=== PATIENT | female | born 1970 | race Caucasian/White ===

== ENCOUNTER 2016-11-12 15:15 | Emergency (ER) | payer OTHER ==
[~2016-11-12] VITALS: Ht 152.4 cm; Wt 72.2 kg
[~2016-11-12 15:15] MED LIST: ALBU1AER INH; HYDR-3533 PO; IRON18TA2 PO; MECL-62 PO; METH750T2 PO; OMEP20TA39 PO
[2016-11-12 15:18] VITALS: BP 139/85; PULSE 95; RESP 16; TEMP 99; O2SAT 98
[2016-11-12] MEDS ORDERED: ALBUAER3 INH (15:45)
[2016-11-12] MEDS ORDERED: SPIRCAP INH (15:49)
[2016-11-12] MEDS ORDERED: OMEP20TA PO (15:49)
[2016-11-12] MEDS ORDERED: METOCLOPRAMIDE HCL 10 MG/2 ML VIAL IV PUSH ONE (16:15)
[2016-11-12] MEDS ORDERED: MORPHINE SULFATE 4 MG/ML INJ IV PUSH ONE (16:15)
[2016-11-12] MEDS ORDERED: SODIUM CHLORIDE 0.9% FLUSH 10 ML FLUSH IV FLUSH PRN (16:15)
--- NOTE | 2016-11-12 16:15 | PD ---
HPI Chief Complaint: Dizziness Time Seen by Provider: 15:54 Travel History International Travel<30 days: No Contact w/Intl Traveler<30days: No Traveled to known affect area: No History of Present Illness HPI 46-year-old female with history of hydrocephalus as a child with VETERINARIAN EPIDEMIOLOGIST shunt that was revised 14 years ago here at [facility], here for evaluation of headache, dizziness, and right shoulder pain. The patient states that for the last several months she feels a tugging sensation in her right shoulder when she moves her neck around and believes it is from her VETERINARIAN EPIDEMIOLOGIST shunt being pulled. She reports that she fell 3 days ago and sustained minor head injury, no LOC. She feels as though there is a brick sitting on the top of her head, and is also complaining of dizziness with movements. Patient also reports having tingling sensation in all 4 for extremities. She denies fevers or chills. No visual disturbance. PFSH Past Medical History Cancer: Yes (brain) COPD: Yes Diminished Hearing: Yes (PT READS LIPS) GERD: Yes Neurologic: Yes (HYDROCEPHALUS AND VERTIGO) Immunizations Current: Yes Influenza Vaccination: No ?: Not Menopausal: Yes : 2 Para: 2 Tubal Ligation: Yes Past Surgical History Section: Yes Neurologic Surgery: Yes (SHUNT R/T HYDROCEPHALUS, BRAIN TUMOR) Tonsillectomy: Yes Social History Alcohol Use: Yes (RARE) Tobacco Use: No (1-2 CIGS PER DAY) Substance Use: No Allergies-Medications (Allergen,Severity, Reaction): Coded Allergies: Penicillin (Verified Allergy, Severe, GI UPSET, 11/12/16) Tramadol (Verified Allergy, Intermediate, Dizziness, 11/12/16) Aspirin (Verified Adverse Reaction, Severe, GI UPSET, 11/12/16) Reported Meds & Prescriptions Reported Meds & Active Scripts Active Tramadol (Tramadol HCl) 50 Mg Tab 50 Mg PO Q6H PRN Reported Spiriva Handihaler (Tiotropium Inh) 18 Mcg Cap 18 Mcg INH DAILY 1 capsule = 18 mcg Omeprazole 20 Mg Tab 20 Mg PO DAILY Proair Hfa 8.5 GM Inh (Albuterol Sulfate) 90 Mcg/Act Aer 1 Puff INH Q4H PRN 108 mcg/actuation Review of Systems Except as stated in HPI: all other systems reviewed are Neg Physical Exam Narrative GENERAL: Well-developed, well-nourished, comfortable, no acute distress. SKIN: Focused skin assessment warm/dry. HEAD: Atraumatic. Normocephalic. Right VETERINARIAN EPIDEMIOLOGIST shunt port is firm when palpated. EYES: Pupils equal and round. No scleral icterus. No injection or drainage. ENT: Mucous membranes pink and moist. NECK: Trachea midline. No JVD. No nuchal rigidity. CARDIOVASCULAR: Regular rate and rhythm. No murmur appreciated. RESPIRATORY: No accessory muscle use. Clear to auscultation. Breath sounds equal bilaterally. GASTROINTESTINAL: Abdomen soft, non-tender, nondistended. MUSCULOSKELETAL: No obvious deformities. No clubbing. No cyanosis. No edema. NEUROLOGICAL: Awake and alert. No obvious cranial nerve deficits. Motor grossly within normal limits. Normal speech. No focal deficits. PSYCHIATRIC: Appropriate mood and affect; insight and judgment normal. Data Data Last Documented VS Vital Signs Date Time Temp Pulse Resp B/P Pulse Ox O2 Delivery O2 Flow Rate FiO2 11/12/16 18:19 75 16 133/80 98 Room Air 11/12/16 15:18 99.0 Orders Complete Blood Count With Diff (11/12/16 16:03) Comprehensive Metabolic Panel (11/12/16 16:03) Prothrombin Time / Inr (Pt) (11/12/16 16:03) Act Partial Throm Time (Ptt) (11/12/16 16:03) Iv Access Insert/Monitor (11/12/16 16:03) Ecg Monitoring (11/12/16 16:03) Oximetry (11/12/16 16:03) Sodium Chloride 0.9% Flush (Ns Flush) (11/12/16 16:15) Electrocardiogram (11/12/16 16:03) Ct Brain W/O Iv Contrast(Rout) (11/12/16 ) Shunt Series (11/12/16 ) Beta Hcg (Quant/Titer) (11/12/16 16:03) Morphine Inj (Morphine Inj) (11/12/16 16:15) Metoclopramide Inj (Reglan Inj) (11/12/16 16:15) Shoulder, Complete (>2vws) (11/12/16 ) Sling Cradle Arm (11/12/16 ) Labs Laboratory Tests Test 11/12/16 16:55 White Blood Count 8.9 TH/MM3 Red Blood Count 4.59 MIL/MM3 Hemoglobin 13.9 GM/DL Hematocrit 40.5 % Mean Corpuscular Volume 88.2 FL Mean Corpuscular Hemoglobin 30.3 PG Mean Corpuscular Hemoglobin 34.3 % Concent Red Cell Distribution Width 12.4 % Platelet Count 220 TH/MM3 Mean Platelet Volume 7.7 FL Neutrophils (%) (Auto) 61.1 % Lymphocytes (%) (Auto) 26.6 % Monocytes (%) (Auto) 6.5 % Eosinophils (%) (Auto) 3.8 % Basophils (%) (Auto) 2.0 % Neutrophils # (Auto) 5.4 TH/MM3 Lymphocytes # (Auto) 2.4 TH/MM3 Monocytes # (Auto) 0.6 TH/MM3 Eosinophils # (Auto) 0.3 TH/MM3 Basophils # (Auto) 0.2 TH/MM3 CBC Comment DIFF FINAL Differential Comment Prothrombin Time 10.6 SEC Prothromb Time International 1.0 RATIO Ratio Activated Partial 26.1 SEC Thromboplast Time Sodium Level 139 MEQ/L Potassium Level 4.7 MEQ/L Chloride Level 103 MEQ/L Carbon Dioxide Level 28.2 MEQ/L Anion Gap 8 MEQ/L Blood Urea Nitrogen 17 MG/DL Creatinine 0.67 MG/DL Estimat Glomerular Filtration 94 ML/MIN Rate Random Glucose 93 MG/DL Calcium Level 8.7 MG/DL Total Bilirubin 0.5 MG/DL Aspartate Amino Transf 40 U/L (AST/SGOT) Alanine Aminotransferase 16 U/L (ALT/SGPT) Alkaline Phosphatase 86 U/L Total Protein 7.7 GM/DL Albumin 3.3 GM/DL Human Chorionic Gonadotropin, LESS THAN 1 Quant MIU/ML [facility] Medical Decision Making Medical Screen Exam Complete: Yes Emergency Medical Condition: Yes Interpretation(s) EKG: Sinus, rate 74, normal axis, normal intervals, no acute ischemic abnormality. Differential Diagnosis VETERINARIAN EPIDEMIOLOGIST shunt malfunction, headache, tension headache, migraine headache, meningitis/ encephalitis unlikely Narrative Course Vital signs show heart rate 83, blood pressure and 30/83, pulse ox 97% on room air, oral temp of 99F. CBC is unremarkable. CMP is unremarkable. Beta hCG is negative. Right shoulder x-ray: CONCLUSION: Abnormal appearance of the right humeral head. Note of previous fracture, however new superimposed fracture not excluded Shunt series: CONCLUSION: Intact shunt Patient was made aware of all findings. She is feeling much better after receiving antiemetics and pain medication. She is ambulating to and from the restroom without difficulty and without assistance. She is overall very well- appearing. She does report having some frequent falls secondary to dizziness, and this is how she may have injured her right shoulder. Her right shoulder will be placed in a sling. She is stable for discharge home with outpatient follow-up with her primary care physician this week. She was informed on when to return to the emergency department. She verbalizes understanding and agreement with plan. Diagnosis Primary Impression: Dizziness Additional Impression: Right shoulder pain Qualified Code: M25.511 - Right shoulder pain, unspecified chronicity Referrals: Primary Care Physician 3 days Additional Instructions: Follow-up with your primary care physician this week. Return to the emergency department for worsening symptoms or any other concerns. Disposition: 01 DISCHARGE HOME Condition: Stable Daniel Washington MD November 12, 2016 16:15
--- NOTE | 2016-11-12 16:52 | RADHPO ---
EXAM DATE/TIME: 11/12/2016 16:29 [facility] COMPARISON: SHOULDER RIGHT COMPLETE (>2VWS), October 30, 2015, 14:39. INDICATIONS : Right shoulder pain, no known injury. MEDICAL HISTORY : right shoulder fracture SURGICAL HISTORY : documentation improvement specialist shunt ENCOUNTER: Initial ACUITY: >1 year PAIN SCORE: 5/10 LOCATION: Right shoulder FINDINGS: There is a minimally displaced fracture involving the surgical neck region of the proximal right jay lotus with slight cortical step-off seen in the region of the greater tuberosity and lucency projecting transversely through the proximal humerus. The patient has fractured this shoulder previously, howev er new injury is not entirely excluded. The humeral head remains grossly situated over the bony gleno id. The scapula and clavicle appear intact. Adjacent ribs appear intact. Partially removed NEUROPHYSIOLOGIST shunt t ubing is noted as is a elongated calcific density projecting in the axillary region which is unchange d CONCLUSION: Abnormal appearance of the right humeral head. Note of previous fracture, however new superimposed fr acture not excluded Kushal Trujillo MD on November 12, 2016 at 16:47 Board Certified Radiologist. This report was verified electronically.
--- NOTE | 2016-11-12 16:58 | RADHPO ---
EXAM DATE/TIME: 11/12/2016 16:07 [facility] COMPARISON: No previous studies available for comparison. INDICATIONS : Headaches. MEDICAL HISTORY : hydrocephalus, vertigo, brain cancer, brain tumor SURGICAL HISTORY : vp of product shunt, brain tumor ENCOUNTER: Initial ACUITY: 2 months PAIN SCORE: 7/10 LOCATION: head FINDINGS: Ventricular shunt tubing enters from the right frontal region. It traverses the right neck down acros s the chest to terminate with tip in the right up quadrant of the abdomen. An abandoned shunt is also present more laterally in the right chest and extending into the left lower quadrant of the abdomen. The tubing is intact throughout. CONCLUSION: Intact shunt Kushal Trujillo MD on November 12, 2016 at 16:54 Board Certified Radiologist. This report was verified electronically.
[2016-11-12 17:03] LABS: AUTOMATED NEUTROPHIL # 5.4 TH/MM3 (1.8-7.7); BASOPHIL # 0.2 TH/MM3 (0-0.2); EOSINOPHIL # 0.3 TH/MM3 (0-0.4); EOSINOPHIL % 3.8 % (0.0-4.0); HEMATOCRIT 40.5 % (35.0-46.0); HEMO FLAGS DIFF FINAL; LYMPH % 26.6 % (9.0-44.0); LYMPHOCYTE # 2.4 TH/MM3 (1.0-4.8); MEAN CELL VOLUME 88.2 FL (80.0-100.0); MEAN CORPUSCULAR HEMOGLOBIN 30.3 PG (27.0-34.0); MEAN CORPUSCULAR HGB CONC 34.3 % (32.0-36.0); MONO % 6.5 % (0.0-8.0); NEUT % 61.1 % (16.0-70.0); PLATELET COUNT 220 TH/MM3 (150-450); RED BLOOD COUNT 4.59 MIL/MM3 (4.00-5.30); RED CELL DISTRIBUTION WIDTH 12.4 % (11.6-17.2); WHITE BLOOD COUNT 8.9 TH/MM3 (4.0-11.0)
[2016-11-12 17:10] LABS: CHLORIDE 103 MEQ/L (98-107); SODIUM (NA) 139 MEQ/L (136-145)
[2016-11-12 17:14] LABS: ANION GAP 8 MEQ/L (5-15); BICARBONATE 28.2 MEQ/L (21.0-32.0); BLOOD UREA NITROGEN 17 MG/DL (7-18)
[2016-11-12 17:15] LABS: POTASSIUM 4.7 MEQ/L (3.5-5.1)
[2016-11-12 17:17] VITALS: BP 130/83; PULSE 83; RESP 18; O2SAT 97
[2016-11-12 17:17] LABS: ALT (GPT) 16 U/L (10-53); AST (GOT) 40 U/L (15-37); GLOMERULAR FILTRATION RATE 94 ML/MIN (>89)
[2016-11-12 17:18] VITALS: RESP 18; O2SAT 98
[2016-11-12 17:19] LABS: TOTAL BILIRUBIN ADULT 0.5 MG/DL (0.2-1.0)
[2016-11-12 17:20] LABS: ALKALINE PHOSPHATASE 86 U/L (45-117)
[2016-11-12 17:22] LABS: BETA HCG QUANT LESS THAN 1 MIU/ML (0-5)
[2016-11-12 17:57] LABS: APTT (PATIENT) 26.1 SEC (24.3-30.1); PROTHROMBIN TIME - PATIENT 10.6 SEC (9.8-11.6)
[2016-11-12 18:19] VITALS: BP 133/80; PULSE 75; RESP 16; O2SAT 98
--- NOTE | 2016-11-12 18:27 | RADHPO ---
EXAM DATE/TIME: 11/12/2016 18:01 [facility] COMPARISON: CT BRAIN W/O CONTRAST, July 23, 2014, 10:03. INDICATIONS : Headache and dizziness. RADIATION DOSE: 59.94 CTDIvol (mGy) MEDICAL HISTORY : Brain tumor. SURGICAL HISTORY : Tonsillectomy. Shunt. ENCOUNTER: Initial ACUITY: 1 day PAIN SCALE: 3/10 LOCATION: cranial TECHNIQUE: Multiple contiguous axial images were obtained of the head. Using automated exposure control and adj ustment of the mA and/or kV according to patient size, radiation dose was kept as low as reasonably a chievable to obtain optimal diagnostic quality images. FINDINGS: There are postoperative changes of previous occipital craniotomy with encephalomalacia and punctate c alcifications involving the cerebellar vermi and hemispheres. The appearance is unchanged. A right fr ontal ventriculostomy terminates with tip in the body of the right lateral ventricle. Ventricles are decompressed. There is mild gliosis in the right frontal region along the course of the ventriculosto my. There is no evidence of intracranial hemorrhage. Nothing to suggest acute infarction. Mild mucosa l sinus disease which appears fairly stable. CONCLUSION: Stable brain appearance Kushal Trujillo MD on November 12, 2016 at 18:22 Board Certified Radiologist. This report was verified electronically.
[2016-11-12] MEDS ORDERED: TRAM50TA PO (18:51)
--- NOTE | 2016-11-12 22:38 | EKG ---
Date Performed: 11/12/2016 Time Performed: 16:54:08 PTAGE: 46 years EKG: Sinus rhythm Normal ECG PREVIOUS TRACING : 03/22/2003 16.56 No significant change from previous tracing noted. DOCTOR: Colt Rogers Interpretating Date/Time 11/12/2016 22:37:17
== END 2016-11-12 19:29 | disposition home or self-care (01) ==
LOC: PHED 15:15
DX: R42 Dizziness and giddiness (principal); R51 Headache; M25.511 Pain in right shoulder; Z85.841 Personal history of malignant neoplasm of brain; Z98.2 Presence of cerebrospinal fluid drainage device
CPT/HCPCS: 70250; 70450; 71010; 72040; 73030; 74000; 80053; 84702; 85025; 85610; 85730; 93005; 96374; 96375; 99284; J2270; J2765

== ENCOUNTER 2017-07-16 21:07 | Emergency (ER) | payer OTHER ==
[~2017-07-16] VITALS: Ht 154.9 cm; Wt 79.0 kg
[~2017-07-16 21:07] MED LIST changes: -ALBU1AER INH; +ALBUAER3 INH; -HYDR-3533 PO; -IRON18TA2 PO; -MECL-62 PO; -METH750T2 PO; -OMEP20TA39 PO; +OMEP20TA93 PO; +SPIRCAP INH
[2017-07-16 21:16] VITALS: BP 135/77; PULSE 88; RESP 18; TEMP 98.4; O2SAT 97
[2017-07-16] MEDS ORDERED: ACETAMINOPHEN/HYDROcodone 325 MG/5 MG TAB PO ONE (21:45)
--- NOTE | 2017-07-16 21:46 | PD ---
HPI Chief Complaint: Pain: Acute or Chronic Time Seen by Provider: 21:23 Travel History International Travel<30 days: No Contact w/Intl Traveler<30days: No Traveled to known affect area: No History of Present Illness HPI Patient is a 47-year-old female with a history of degenerative disc disease in her neck as well as hydrocephalus treated with a shunt as a child presents emergency department for evaluation of left shoulder and radiculopathy symptoms down the left upper extremity. Patient states been going on for a day. She states that she was also evaluated at the smear in the hospital. She states she does not have a neurosurgeon to follow-up her shunt, she states that her shunt was evaluated some months ago. Quite eccentric behavior the patient is also complaining of some intermittent vertigo over the past 5 years, she states that she walked into her sister year and a half ago. Patient denies any acute injury to her head neck and upper extremity. Denies any fevers, denies any weakness of the upper extremity. Denies any bowel or bladder incontinence or retention. States he took Tylenol prior to arrival with minimal relief. Denies any visual difficulty denies any fevers. She also complains of a mild headache on and off for "years". PFSH Past Medical History Cancer: Yes (brain) COPD: Yes Diminished Hearing: Yes (PT READS LIPS) GERD: Yes Neurologic: Yes (HYDROCEPHALUS AND VERTIGO) Immunizations Current: Yes ?: Not Menopausal: Yes : 2 Para: 2 Tubal Ligation: Yes Past Surgical History Section: Yes Neurologic Surgery: Yes (SHUNT R/T HYDROCEPHALUS, BRAIN TUMOR) Tonsillectomy: Yes Social History Alcohol Use: Yes (RARE) Tobacco Use: No (1-2 CIGS PER DAY) Substance Use: No Allergies-Medications (Allergen,Severity, Reaction): Coded Allergies: penicillin G (Unverified Allergy, Severe, GI UPSET, 07/16/17) tramadol (Unverified Allergy, Intermediate, Dizziness, 07/16/17) aspirin (Unverified Adverse Reaction, Severe, GI UPSET, 07/16/17) Reported Meds & Prescriptions Reported Meds & Active Scripts Active Medrol Dosepak (Methylprednisolone) 4 Mg Dspk 4 Mg PO DIRECTED Per Pharmacist direction Reported Spiriva Handihaler (Tiotropium Inh) 18 Mcg Cap 18 Mcg INH DAILY 1 capsule = 18 mcg Omeprazole 20 Mg Tab 20 Mg PO DAILY Proair Hfa 8.5 GM Inh (Albuterol Sulfate) 90 Mcg/Act Aer 1 Puff INH Q4H PRN 108 mcg/actuation Review of Systems Except as stated in HPI: all other systems reviewed are Neg Physical Exam Narrative GENERAL: [Well-developed well-nourished, appears older than stated age in no obvious distress SKIN: Focused skin assessment warm/dry. HEAD: Atraumatic. Normocephalic. EYES: Pupils equal and round. No scleral icterus. No injection or drainage. ENT: No nasal bleeding or discharge. Mucous membranes pink and moist. Edentulous TMs clear bilaterally, oropharynx clear moist NECK: Trachea midline. No JVD. CARDIOVASCULAR: Regular rate and rhythm. No murmur appreciated. RESPIRATORY: No accessory muscle use. Clear to auscultation. Breath sounds equal bilaterally. GASTROINTESTINAL: Abdomen soft, non-tender, nondistended. Hepatic and splenic margins not palpable. MUSCULOSKELETAL: No obvious deformities. No clubbing. No cyanosis. No edema. No midline CT or L-spine tenderness, full nontender range of motion of bilateral upper extremities. NEUROLOGICAL: Awake and alert. Cranial nerves II through XII are grossly intact and nonfocal, 5 out of 5 strength in all 4 extremity's. Mild slurred speech likely secondary to be edentulous nature. PSYCHIATRIC: Appropriate mood and affect; insight and judgment normal. Data Data Last Documented VS Vital Signs Date Time Temp Pulse Resp B/P (MAP) Pulse Ox O2 Delivery O2 Flow Rate FiO2 07/16/17 23:10 68 16 130/78 (95) 96 07/16/17 21:16 98.4 Orders Orders Shunt Series (07/16/17 ) Ct Brain W/O Iv Contrast(Rout) (07/16/17 ) Acetamin-Hydrocod 325-5 Mg ([place] 5-325 (07/16/17 21:45) Ed Discharge Order (07/16/17 22:59) [facility] Medical Decision Making Medical Screen Exam Complete: Yes Emergency Medical Condition: Yes Differential Diagnosis radiculopathy, shunt malfunction unlikely, degenerative disc disease Narrative Course Patient roomed in emergency primary, quite eccentric, she was given pain medicine and had complete relief for her symptoms. On revisit she is sleeping soundly aroused easily and states she was feeling better. Shunt series and CT head showed no change from previous. I have very low suspicion for shunt malfunction in this patient. I discussed with her that she needs to follow up with her primary care physician and consider following up with neurosurgeon. We will prescribe Medrol Dosepak as there may be some inflammatory changes surrounding her degenerative disc disease to her symptoms. At this time she is stable for discharge. Discussed return to ED criteria Diagnosis Primary Impression: Left cervical radiculopathy Patient Instructions: Cervical Radiculopathy (ED), General Instructions Med/Other Pt SpecificInfo: Prescription(s) given Scripts Methylprednisolone Dosepak (Medrol Dosepak) 4 Mg Dspk 4 MG PO DIRECTED, #1 DSPK 0 Refills Per Pharmacist direction Prov: Cory Torres MD 07/16/17 Disposition: 01 DISCHARGE HOME Condition: Stable Cory Torres MD Jul 16, 2017 21:46
--- NOTE | 2017-07-16 22:32 | RADRPT ---
EXAM DATE/TIME: 07/16/2017 22:11 [facility] COMPARISON: SHUNT SERIES, November 12, 2016, 16:07. INDICATIONS : Headaches. MEDICAL HISTORY : Brain tumor. SURGICAL HISTORY : CRYOGENIC TRANSPORT DRIVER shunt. ENCOUNTER: Initial ACUITY: 3 days PAIN SCORE: 8/10 LOCATION: Cranial and cervical. FINDINGS: Radiograph of the skull, neck, chest and abdomen performed to evaluate shunt patency. The shunt cath eter is seen entering the right parietal region with its tip in the region of the body of the right l ateral ventricle The catheter is continuous in its course terminating in the right abdomen No catheter disruption is i dentified. The visualized heart, lungs and abdominal structures are intact. CONCLUSION: Intact shunt. Glies Cunningham MD on July 16, 2017 at 22:29 Board Certified Radiologist. This report was verified electronically.
--- NOTE | 2017-07-16 22:42 | RADRPT ---
EXAM DATE/TIME: 07/16/2017 22:21 [facility] COMPARISON: CT BRAIN W/O CONTRAST, November 12, 2016, 18:01. INDICATIONS : Cephalgia. RADIATION DOSE: 64.66 CTDIvol (mGy) MEDICAL HISTORY : Hydrocephalus. Vertigo. Brain tumor. SURGICAL HISTORY : Brain tumor removed. Shunt. ENCOUNTER: Initial ACUITY: 3 days PAIN SCALE: 5/10 LOCATION: cranial TECHNIQUE: Multiple contiguous axial images were obtained of the head. Using automated exposure control and adj ustment of the mA and/or kV according to patient size, radiation dose was kept as low as reasonably a chievable to obtain optimal diagnostic quality images. DICOM format image data is available electro nically for review and comparison. FINDINGS: CEREBRUM: Right frontal ventriculostomy catheter with slight encephalomalacia right frontal lobe. The appearanc e is unchanged. The ventricles are normal for age. No evidence of midline shift, mass lesion, hemorr huma or acute infarction. No extra-axial fluid collections are seen. POSTERIOR FOSSA: Occipital craniotomy with encephalomalacia and adjacent surgical clips.. The 4th ventricle is midlin e. The cerebellopontine angle is unremarkable. EXTRACRANIAL: The visualized portion of the orbits is intact. SKULL: The calvaria is intact. No evidence of skull fracture. CONCLUSION: Stable appearance of the brain. No acute intracranial abnormality. Giles Cunningham MD on July 16, 2017 at 22:38 Board Certified Radiologist. This report was verified electronically.
[2017-07-16] MEDS ORDERED: MEDR4PAK PO (23:01)
[2017-07-16 23:10] VITALS: BP 130/78
== END 2017-07-16 23:24 | disposition home or self-care (01) ==
LOC: PHED 21:07
DX: M54.12 Radiculopathy, cervical region (principal); M50.30 Other cervical disc degeneration, unspecified cervical region
CPT/HCPCS: 70250; 70450; 71045; 72040; 74018